=== PATIENT | male | born 2000 | race Caucasian/White ===

== ENCOUNTER → 2021-05-23 00:56 | Outpatient (CLI) | payer OTHER, SELFPAY ==
[2021-05-23 18:27] LABS: SARS-CoV-2 RNA PCR Negative
== END ==
PROVIDERS: PCP Internal Medicine; Visit Provider Internal Medicine Gastroenterology
DX: Z01.812 Encounter for preprocedural laboratory examination (principal); Z20.822 Contact with and (suspected) exposure to COVID-19
CPT/HCPCS: C9803; U0003; U0005

== ENCOUNTER 2021-05-26 02:09 | Day surgery (SDC) | payer OTHER, SELFPAY ==
[2021-05-14 13:18] VITALS: BMI 39.8
--- NOTE | 2021-05-26 11:55 | WPDANESEPPF ---
Anes - Initial Pre Proc Eval Procedure: Operation Date: 05/26/21 13:00 Proposed Procedures p Esophagogastroduodenoscopy - Jovanny Narayan MD Date/Time: 05/26/21 11:55 Surgeon: Jovanny Narayan MD Pre Op Diagnosis: dysphagia, epigastic pain, vomiting Patient Data Age: 20 Gender: M Height: 1.6 m Weight: 102 kg Allergies Allergy/AdvReac Type Severity Reaction Status Date / Time No Known Allergies Allergy Verified 05/14/21 13:17 Home Medications Medication Instructions Recorded Confirmed Type No Home Medications 05/14/21 05/14/21 History Patient hx anesthesia problems: none Family hx anesthesia problems: none [facility] Past Medical History Medical History (Updated 05/26/21 @ 11:55 by Negrito Espinoza MD) Obesity Social History Social History Smoking status: Never smoker Living arrangements: with family Spiritual care concerns: No Anes - Eval Final PreProcedure Day of Procedure 05/26/21 11:55 Patient weight: obese Heart: regular rate and rhythm Lungs: clear to auscultation and normal air movement Airway: Mallampati scale class II Neurological: alert and oriented Last oral intake: >/= 8 hours ASA classification: II Emergent: no Anesthetic plan: proceed Anesthesia type and monitoring: general GIVS Informed Consent: The patient's anesthetic plan and its attendant risks and benefits were discussed with the patient/family/POA. Questions were solicited and answers provided to the satisfaction of the patient/family/POA.
[2021-05-26 12:08] VITALS: BP 131/75; PULSE 72; RESP 16; TEMP 36.6; O2SAT 100; BMI 41.0
[2021-05-26] MEDS: LACTATED RINGERS 1,000 ML 150 ML IV CONT (12:21)
--- NOTE | 2021-05-26 13:04 | PM.HPGS ---
History of Present Illness History of Present Illness Consent: Risks, benefits, and alternatives have been discussed and questions answered. Patient agrees to proceed with procedure. Chief complaint: dysphagia, epigastic pain, vomiting Narrative: Yeyo Ramos is a 20 year old male with few months of dysphagia to solids, never had egd Review of Systems Constitutional: Constitutional: Denies headache(s) and Denies weakness Eyes: Eyes: Denies blurry vision ENT: Reports Normal hearing present, Denies headache(s) and Denies neck pain Cardiovascular: Cardiovascular: Denies chest pain and Denies dyspnea Respiratory: Respiratory: Denies dyspnea Gastrointestinal: Gastrointestinal: Reports no additional gastrointestinal complaints Genitourinary: Genitourinary: Denies dysuria Musculoskeletal: Musculoskeletal: Denies neck pain Integumentary/Breasts: Skin/Breast: Denies dry skin Neurologic: Reports Normal hearing present, Denies headache(s) and Denies weakness Psychiatric: Psychiatric: Denies anxiety Endocrine: Endocrine: Denies change in body appearance Hematologic/Lymphatic: Hematologic/Lymphatic: Denies easy bleeding Allergic/Immunologic: Allergic/Immunologic: Denies urticaria PMFSH Past Medical History Medical History (Updated 05/26/21 @ 13:05 by Jovanny Narayan MD) Dysphagia Obesity Social History Social History Smoking status: Never smoker Living arrangements: with family Spiritual care concerns: No Meds Home Medications and Allergies Home Medications Medication Instructions Recorded Confirmed Type No Home Medications 05/14/21 05/26/21 History Allergies Allergy/AdvReac Type Severity Reaction Status Date / Time No Known Allergies Allergy Verified 05/26/21 12:07 Vital Signs Vital Signs - 24 hr 05/26/21 12:08 Temperature 97.9 F Pulse Rate 72 Respiratory Rate 16 Blood Pressure 131/75 Pulse Oximetry 100 Exam Const: General: comfortable and no acute distress HENMT: General nose exam: Normal nares present Eyes: General: appearance normal, both eyes and all related structures Neck: Neck: no JVD Resp: Auscultation: clear to auscultation bilaterally Cardio: Rate: regular rate Rhythm: regular rhythm GI: Inspection: non-distended GI Palp: Yes Soft to palpation Skin: General skin exam: normal color Neuro: General: gait normal Speech: normal speech Extrem: General: normal to inspection Psych: Mental Status: mental status grossly normal Assessment and Plan Assessment and plan (1) Dysphagia: Code(s): R13.10 - Dysphagia, unspecified Status: Acute Assessment and Plan: egd with bx
[2021-05-26 13:18] VITALS: BP 91/45; PULSE 70; RESP 16; O2SAT 98
[2021-05-26 13:28] VITALS: BP 109/67; PULSE 70; RESP 16; O2SAT 99
[2021-05-26 13:38] VITALS: BP 112/78; PULSE 64; RESP 16; O2SAT 99
== END 2021-05-26 14:00 | disposition home or self-care (01) ==
PROVIDERS: PCP Internal Medicine; Visit Provider Internal Medicine Gastroenterology
PROC: 0DJ08ZZ Inspection of Upper Intestinal Tract, Via Natural or Artificial Opening Endoscopic (ICD-10-PCS; CPT 43235; principal; 2021-05-26 13:00)
DX: R13.10 Dysphagia, unspecified (principal); K21.00 Gastro-esophageal reflux disease with esophagitis, without bleeding; E66.01 Morbid (severe) obesity due to excess calories; Z68.41 Body mass index [BMI] 40.0-44.9, adult
CPT/HCPCS: 43239; 88305; C9803; J2704; J7120; U0003; U0005